=== PATIENT | male | born 1980 | race Caucasian/White ===

== ENCOUNTER 2019-04-17 19:23 | Emergency (ER) | payer MEDICARE, OTHER ==
[~2019-04-17] VITALS: Ht 165.1 cm; Wt 73.0 kg
[2019-04-17 19:48] VITALS: Ht 165.1 cm; Wt 73.0 kg
[2019-04-17] MEDS ORDERED: ACETAMINOPHEN 325 MG TAB PO ONE (21:30)
[2019-04-17] MEDS ORDERED: IBUP-1561 PO (22:52)
[2019-04-17] MEDS ORDERED: ACET-141 PO (22:52)
--- NOTE | 2019-04-17 22:53 | ERD ---
ER Documentation Chief Complaint Chief Complaint chest pain/cough x 4 days ROS All systems reviewed and are negative except as per history of present illness. Medications Home Meds Active Scripts Ibuprofen* (Motrin*) 400 Mg Tab, 400 MG PO Q6H PRN for PAIN AND OR ELEVATED TEMP, #30 TAB Prov:MARK CARDENAS 04/17/19 Acetaminophen* (Acetaminophen*) 500 MG Extra Strength Tablet, 500 MG PO Q4H PRN for PAIN AND OR ELEVATED TEMP, #30 TAB Prov:MARK CARDENAS DO 04/17/19 Allergies Allergies: Coded Allergies: No Known Drug Allergies (Verified Allergy, Unknown, 04/17/19) PMhx/Soc Medical and Surgical Hx: pt denies Medical Hx, pt denies Surgical Hx Hx Alcohol Use: No Hx Substance Use: No Hx Tobacco Use: No Smoking Status: Never smoker Physical Exam Vitals Vital Signs Date Temp Pulse Resp B/P (MAP) Pulse Ox O2 O2 Flow FiO2 Time Delivery Rate 04/17/19 99.7 94 18 124/58 98 19:48 (80) Physical Exam Const: No acute distress Head: Atraumatic Eyes: Normal Conjunctiva ENT: Normal External Ears, Nose and Mouth. Neck: Full range of motion. No meningismus. Resp: Clear to auscultation bilaterally Cardio: Regular rate and rhythm, no murmurs Abd: Soft, non tender, non distended. Normal bowel sounds Skin: No petechiae or rashes Back: No midline or flank tenderness Ext: No cyanosis, or edema Neur: Awake and alert Psych: Normal Mood and Affect Results 24 hrs Current Medications Medications Dose Sig/[place] Start Time Status Last (Trade) Ordered Route PRN Stop Time Admin Dose Reason Admin 650 mg ONCE ONCE 04/17/19 DC 04/17/19 Acetaminophen PO 21:30 21:28 (Tylenol 04/17/19 21:31 Tab) Departure Diagnosis: Primary Impression: Chest wall pain Condition: Fair Patient Instructions: Chest Wall Pain, Costochondritis, Chest Wall Strain Additional Instructions: Call your primary care doctor TOMORROW for an appointment during the next 1-2 days.See the doctor sooner or return here if your condition worsens before your appointment time. MARK CARDENAS DO Apr 17, 2019 22:53
[2019-04-17 23:09] VITALS: BP 119/68; PULSE 70; RESP 18
== END 2019-04-17 23:10 | disposition home or self-care (01) ==
LOC: FTE 19:23
DX: R07.89 Other chest pain (principal)
CPT/HCPCS: 71046; 93005